=== PATIENT | male | born 1950 | race Two or more races ===

== ENCOUNTER 2020-11-05 18:03 | Emergency (ER) | payer OTHER ==
[~2020-11-05] VITALS: Ht 180.3 cm; Wt 81.0 kg
[2020-11-05 19:18] LABS: BASOPHILS % 0.4 % (0.0-2.0); EOSINOPHILS % 1.7 % (0.0-5.0); HEMATOCRIT. 39.7 % (42.0-52.0); HEMOGLOBIN. 13.2 g/dL (14.0-18.0); LYMPHOCYTES % 26.4 % (20.0-50.0); MEAN CORPUSCULAR HEMOGLOBIN 31.5 pg (28.0-32.0); MEAN CORPUSCULAR VOLUME 94.6 fL (80.0-94.0); MEAN PLATELET VOLUME 8.7 fl (7.4-10.4); MONOCYTES % 8.4 % (2.0-8.0); NEUTROPHILS % 63.1 % (40.0-76.0); PLATELET 187 x1000/uL (130-400); RED CELL DISTRIBUTION WIDTH 14.8 % (11.6-14.6)
[2020-11-05 19:25] LABS: CHLORIDE 110 mEq/L (98-107)
[2020-11-05 19:27] LABS: INR 1.1; PROTHROMBIN TIME 11.3 sec (9.6-11.0)
[2020-11-05 19:29] LABS: ETHANOL BLOOD < 10 mg/dL
[2020-11-05] MEDS ORDERED: DEXT 5% WATER 500 ML IV ONE (19:30)
[2020-11-05 19:50] VITALS: BP 146/84
== END 2020-11-05 20:18 | disposition home or self-care (01) ==
LOC: ER 18:03 → CANBEDREQ 21:59
DX: T40.7X1A Poisoning by cannabis (derivatives), accidental (unintentional), initial encounter (principal); R41.82 Altered mental status, unspecified; R03.0 Elevated blood-pressure reading, without diagnosis of hypertension; F12.129 Cannabis abuse with intoxication, unspecified; Y92.89 Other specified places as the place of occurrence of the external cause
CPT/HCPCS: 36415; 71045; 80053; 80320; 83605; 83880; 84145; 84484; 85025; 85610; 99284; J7060; G0480